=== PATIENT | male | born 1935 | race Caucasian/White ===

== ENCOUNTER 2018-01-12 16:25 | Emergency (ER) | payer BC, MEDICARE ==
[2018-01-12 16:36] VITALS: BP 154/82
--- NOTE | 2018-01-12 16:52 | ED ---
Adult Trauma - HPI Summary HPI Summary: 82 yr old male with complaint of neck, back pain and blur vision. He fell off a slippery log going up an embankment when he was hunting today, and fell backward landing on his back and then hitting back of his head. He complains of pain in neck with forward flexion, and complained of blur vision. Denies numbness, tingling to the extremities. - History of Current Complaint Chief Complaint: UCGeneralIllness Stated Complaint: BACK/NECK COMPLAINT FROM FALL Time Seen by Provider: 01/12/18 16:46 Pain Intensity: 6 - Allergy/Home Medications Allergies/Adverse Reactions: Allergies Allergy/AdvReac Type Severity Reaction Status Date / Time No Known Allergies Allergy Verified 01/12/18 16:36 Home Medications: Home Medications Simvastatin [Zocor] 1 tab DAILY 01/12/18 [History Confirmed 01/12/18] glipiZIDE TAB* [Glucotrol TAB*] 1 tab DAILY 01/12/18 [History Confirmed 01/12/18 ] metFORMIN* [Glucophage 500 MG TAB *] 1,000 mg BID 01/12/18 [History Confirmed ] PMH/Surg Hx/FS Hx/Imm Hx Infectious Disease History: No Infectious Disease History: Denies: Traveled Outside the [place] in Last 30 Days - Social History Occupation: Retired Lives: With Family Alcohol Use: None Substance Use Type: Reports: None Smoking Status (MU): Never Smoked Tobacco Review of Systems Constitutional: Negative Positive: Blurred Vision Positive: Other - neck and low back pain Negative: Weakness, Paresthesia, Numbness, Syncope, Slurred Speech All Other Systems Reviewed And Are Negative: Yes Physical Exam Triage Information Reviewed: Yes Vital Signs On Initial Exam: Initial Vitals Temp Pulse Resp BP Pulse Ox 98.1 F 65 24 154/82 100 01/12/18 16:31 01/12/18 16:31 01/12/18 16:31 01/12/18 16:31 01/12/18 16:31 Vital Signs Reviewed: Yes Appearance: Positive: Well-Appearing, No Pain Distress Skin: Positive: Warm, Skin Color Reflects Adequate Perfusion Eyes: Positive: EOMI ENT: Positive: Normal ENT inspection Neck: Positive: Nontender - no focal tenderness, but complains of pain on range of motion. Respiratory/Lung Sounds: Positive: Clear to Auscultation, Breath Sounds Present Cardiovascular: Positive: RRR Abdomen Description: Positive: Nontender Musculoskeletal: Positive: Strength/ROM Intact Neurological: Positive: Sensory/Motor Intact, Alert, Oriented to Person Place, Time, CN Intact II-III, Normal Gait, Speech Normal - Cedric Coma Scale Best Eye Response: 4 - Spontaneous Best Motor Response: 6 - Obeys Commands Best Verbal Response: 5 - Oriented Coma Scale Total: 15 Diagnostics - Vital Signs Vital Signs Temp Pulse Resp BP Pulse Ox 01/12/18 16:31 98.1 F 65 24 154/82 100 - Laboratory Lab Statement: Any lab studies that have been ordered have been reviewed, and results considered in the medical decision making process. Adult Trauma Course/Dx - Course Course Of Treatment: 82 yr old with neck and back and potential head trauma, with neck pain with ROM and blur vision. recommend he go to trauma center, immobilized. Risk of fractures, arterial injury in neck, stroke, , disability discussed, and they singed out AMA. - Diagnoses Provider Diagnoses: Neck pain, Back pain, Blurred vision, Hypertension Discharge - Sign-Out/Discharge Documenting (check all that apply): Patient Departure All imaging exams completed and their final reports reviewed: No Studies - Discharge Plan Condition: Good Disposition: AGAINST MEDICAL ADVICE Referrals: Tam Carter MD [Primary Care Provider] - - Billing Disposition and Condition Condition: GOOD Disposition: Against Medical Advice
--- OUTSIDE RECORDS SUMMARY | 2018-01-12 16:57 | XMS REPORT | Continuity of Care Document ---
:1935 External Reference #:[id number] Author Name Natali bOregon O.D. Address [address] [place] [address] Care Team Providers Name Role Phone Tam Carter M.D. Primary Care Physician Unavailable Payers Type Date Identification Numbers Payment Provider Subscriber Effective: Policy Number: [id number] [employer] Zhanna Singleton 2009 Plan PayID: [id number] [place] [id number] Advance Directives Description No Information Available Problems Date Description Provider Status Onset: Benign prostatic hyperplasia Active Onset: Hypercholesterolemia Active Onset: Type 2 diabetes mellitus Active Onset: Hypothyroidism Active Onset: 09/26/2014 Nuclear senile cataract Natali Obregon O.D. Active Onset: 09/26/2014 Tear film insufficiency Natali Obregon O.D. Active Onset: 09/28/2015 Presence of intraocular lens Natali Obregon O.D. Active Onset: 09/28/2015 Presbyopia Natali Obregon O.D. Active Onset: 11/30/2015 Conjunctival hemorrhage Natali Obregon O.D. Active Onset: 12/18/2017 Squamous blepharitis Natali Obregon O.D. 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 ETOH Use Rarely consumes alcohol Tobacco Use Start: Unknown Patient has never smoked Recreational Drug Use Denies Drug Use Smoking Status Reviewed: 12/18/17 Patient has never smoked Allergies, Adverse Reactions, Alerts Description No Known Drug Allergies Medications Medication Date Status Form Strength Qnty SIG Indications Ordering Provider Levothyroxine Active Tablets 25mcg Unknown Sodium 000 Glipizide Active Tablets 5mg Unknown 000 Metformin HCL Active Tablets 1000mg Unknown 000 Simvastatin Active Tablets 40mg Unknown 000 Vitamins/Mineral Active Tablets Unknown s 000 Vitamin D Active Unknown 000 Artificial Tears Active Solution 1-0.3% as needed Unknown 000 Immunizations Description No Information Available Vital Signs Description No Information Available Results Description No Information Available Procedures Date Code Description Status 05/06/2017 91849 Est Patient Comprehensive Exam Completed 05/07/2016 09006 Est Patient Comprehensive Exam Completed 09/28/2015 63668 Determination Of Refractive State Completed 09/28/2015 13989 Est Patient Comprehensive Exam Completed 09/26/2014 35071 Est Patient Comprehensive Exam Completed 10/26/2012 73968 Est Patient Comprehensive Exam Completed 10/26/2012 96844 Excision Chalazion Single Completed 10/23/2010 86469 Est Patient Comprehensive Exam Completed 10/23/2009 26416 Est Patient Comprehensive Exam Completed 08/11/2008 11894 Est Patient Comprehensive Exam Completed 09/17/2007 45858 Est Patient Intermediate Exam Completed 02/25/2007 17003 Extracapsular Cataract Extraction W/Intraocular Lens Completed 02/17/2007 12070 Ophthalmic Biometry Completed 01/16/2007 62090 New Patient Comprehensive Exam Completed Encounters Type Date Location Provider Dx Diagnosis Office Visit 11/30/2015 Natali Farr, H11.32 Conjunctival 3:15p , nickolas OBhumika. hemorrhage, left eye Office Visit 02/17/2007 [facility] Viveros, Denezl Viveros, 366.14 Posterior 3:00p , nickolas Vivar Subcapsular Polar Cataract Senile 366.16 Senile Nuclear Sclerosis / Cataract Plan of Treatment Future Appointment(s):05/07/2018 1:00 pm - Tarun Gómez M.D. at [facility], 12/18/2017 - Natali Obregon O.D.H01.021 Squamous blepharitis right upper eyelidComments:START WARM COMPRESSES WITH GENTLE LID MASSAGE BOTH EYELIDS FOLLOWED BY [employer] TO CLEAN THE LASHESUSE ARTIFICIAL TEARS 2 -3 TIMES A DAY OR MORE NEEDEDFollow up: [id number] Squamous blepharitis left upper eyelidComments:Smoking can increase the risk of developing or worsening any eye related disease, as well as affect your overall health. If you are a smoker, we strongly recommend that you quit.If you are not a smoker, we strongly recommend that you do not start.
== END 2018-01-12 16:50 | disposition left against medical advice (07) ==
LOC: UCCORT 16:25
DX: M54.2 Cervicalgia (principal); M54.9 Dorsalgia, unspecified; H53.8 Other visual disturbances; I10 Essential (primary) hypertension; W01.0XXA Fall on same level from slipping, tripping and stumbling without subsequent striking against object, initial encounter; Y93.89 Activity, other specified; Y92.89 Other specified places as the place of occurrence of the external cause
CPT/HCPCS: 99213; G0463